=== PATIENT | male | born 1975 | race Caucasian/White ===

== ENCOUNTER 2018-03-22 07:38 | Observation (INO) | payer OTHER ==
[2018-03-22] MEDS ORDERED: SODIUM CHLORIDE 0.9% 1000ML 1,000 ML IVS PRN (07:58)
[2018-03-22] MEDS ORDERED: SODIUM CHLORIDE 0.9% (FLUSH) 10 ML SYG IV PRN ×2 (07:58→14:47)
[2018-03-22] MEDS ORDERED: ONDANSETRON INJ 4 MG/2 ML VIAL IV ONE ×2 (08:01→14:54)
[2018-03-22] MEDS ORDERED: HYDROmorphone HCL INJ 2 MG/ML VIAL IV ONE ×4 (08:01→14:19)
--- NOTE | 2018-03-22 08:02 | ED.PDOC ---
History of Present Illness - General Chief Complaint: Problem Stated Complaint: left flank and abdominal pain Time Seen by Provider: 03/22/18 07:53 Source: patient, family - History of Present Illness Initial Comments: 2-3 H AGO, SUDDEN ONSET L ABD/FLANK PAIN. SEVERE. H/O KIDNEY STONE 10 YR AGO . Severity: severe Improving Factors: nothing Worsening Factors: nothing Associated Symptoms: nausea/vomiting Allergies/Adverse Reactions: Allergies NO KNOWN ALLERGY Allergy (Verified 03/22/18 07:49) Home Medications: Ambulatory Orders NK [NK] 03/22/18 Review of Systems - Review of Systems Constitutional: Denies: chills, diaphoresis, fever, malaise EENTM: States: no symptoms reported Respiratory: States: no symptoms reported Cardiology: States: no symptoms reported Gastrointestinal/Abdominal: States: abdominal pain - L FLANK PAIN, nausea, vomiting. Denies: constipation, diarrhea Genitourinary: Denies: dysuria, frequency, hematuria, pain Musculoskeletal: States: no symptoms reported Skin: States: no symptoms reported Neurological: States: no symptoms reported Endocrine: States: no symptoms reported Hematologic/Lymphatic: States: no symptoms reported All other Systems: Reviewed and Negative Past Medical History (General) - Patient Medical History Hx Stroke: No Hx Congestive Heart Failure: No Hx Diabetes: No - Vaccination History Hx Influenza Vaccination: No - Social History Hx Tobacco Use: Yes Family Medical History - Family History Father Family History: Unknown Living Status: Unknown Physical Exam - Physical Exam General Appearance: Alert, Obvious distress, Ill Appearing Eye Exam: bilateral normal Ears, Nose, Throat: hearing grossly normal, normal ENT inspection Neck: non-tender, full range of motion Respiratory: lungs clear, normal breath sounds, no respiratory distress Cardiovascular/Chest: regular rate, rhythm, no murmur Peripheral Pulses: radial,right: 2+, radial,left: 2+ Gastrointestinal/Abdominal: normal bowel sounds, no organomegaly, no pulsatile mass, guarding, tenderness Rectal Exam: deferred Back Exam: normal inspection, CVA tenderness (L) Extremity: normal range of motion, normal inspection 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 EKG NSR. CBC WBC 13.2 CT - L STONE 2.6 MM, DISTAL NEAR UVJ. MILD HYDRONEPHROSIS. UA PENDING TO R/O IFXN. GIVING 2ND BOLUS AND PAIN CONTROL. 03/22/18 12:41 PT REQUIRING 3RD GRAM OF DILAUDID IN 4 HRS THUS HIS REQUIRING IV PAIN CONTROL AND IS THUS NOT ABLE TO BE DISCHARCHED ON PO PAIN CONTROL. THUS, ADMITTING. THANK YOU, [facility] AND [facility], FOR ACCEPTING FURTHER CARE OF OUR PT. UROLOGY WILL BE PRESENT IN THE HOSPITAL TOMORROW FOR CONSULTATION. Departure - Departure Clinical Impression: Left nephrolithiasis, Microscopic hematuria, Hydronephrosis due to obstruction of ureter, Neutrophilic leukocytosis Nausea & vomiting Qualifiers: Vomiting type: unspecified Vomiting Intractability: non-intractable Qualified Code(s): R11.2 - Nausea with vomiting, unspecified Disposition: Admit Patient Condition: Good Departure Forms: Patient Portal Self Enrollment Home Medications: Ambulatory Orders NK [NK] 03/22/18 Decision To Admit - Decistion To Admit Decision to Admit Reason: Admit from ER Decision to Admit Date: 03/22/18 Decision to Admit Time: 12:49
--- NOTE | 2018-03-22 08:52 | CT ---
EXAM DESCRIPTION: Abdoment/Pelvis w/o Contrast: Computed Tomography. CLINICAL HISTORY: L FLANK PAIN; POSSIBLE KIDNEY STONE COMPARISON: None. TECHNIQUE: Spiral-axial scans 5 x 5 mm intervals through the abdomen and pelvis without oral or IV contrast. Coronal and sagittal 2.0 mm reconstructions. Total Exam DLP: 687.13 mGy-cm. This exam was performed according to our departmental CT dose-optimization program which includes automated exposure control, adjustment of the mA and/or kV according to patient size and/or use of iterative reconstruction technique; to reduce radiation dose to as low as reasonably achievable (ALARA). FINDINGS: Lung bases and pleura: Negative. Liver, stomach, spleen, and adrenal glands: Stomach unremarkable. Other solid organs are negative. Pancreas, Gallbladder, and Ducts: Gallbladder visualized. Ducts and pancreas unremarkable. Kidneys and Ureters: Mild hydronephrosis in the left kidney. 3 mm stone in the upper collecting system appears to be nonobstructive. 2.6 mm radiodense stone in the distal left ureter approximately 3 to 4 mm from the left UVJ. Minimal dilation of the entire ureter with periureteral edema at the level of the stone and periureteral edema in the proximal ureter. Right kidney and ureter are negative. Mesentery: Minimal left pararenal fatty stranding. No free intraperitoneal air. No ascites. Aorta: Outer caliber negative. Small Bowel: Minimal gas but no obstruction. Terminal Ileum/Cecum: Cecum minimally distended by fecal matter. Short appendix normal caliber. Normal surrounding fat. Colon: Minimal distention of the transverse colon by gas but no air-fluid level. Abrupt transition distal transverse colon, just before the splenic flexure, on axial series 2 image 20. Narrowed lumen but no definite mass. No surrounding fatty inflammatory change.. Pelvic Organs: No radiodense stones in the urinary bladder. No fluid in the cul-de-sac. Prostate gland abutting the urinary bladder with minimal enlargement. Spine and Bony Pelvis: Minimal sacral dextroscoliosis. Minimal hypertrophic changes in the superior lateral acetabula facets. Abdominal Wall/Back Soft Tissues: Negative. IMPRESSION: 1. 2.6 mm radiodense stone in the distal left ureter with partial obstruction. 3 mm radiodense stone in the upper pole left kidney with mild hydronephrosis. Periureteral edema around the distal ureteral stone in the proximal left ureter. Minimal left pararenal fatty stranding. Right kidney and ureter is unremarkable. No radiodense stones in the bladder. 2. Distention of the transverse colon with gas and abrupt transition at the distal transverse colon adjacent to the splenic flexure. No definite mass or inflammatory changes in the surrounding fat. Correlate with clinical findings and consider colonoscopy. Electronically signed by: Griffin Sheppard MD 03/22/2018 8:50 AM CDT
[2018-03-22] MEDS ORDERED: SODIUM CHLORIDE 0.9% 1000ML 1,000 ML IVS ONE (09:38)
--- NOTE | 2018-03-22 12:45 | HP ---
SUPERVISING PHYSICIAN: Bayron Blackmon MD CHIEF COMPLAINT: Left-sided flank and abdominal pain. HISTORY OF PRESENT ILLNESS: This is a 42 year-old male patient who on the evening prior to admission started having some pain in his left upper quadrant. Initially he thought it was gas pains but it did not go away and it continued. It then radiated to his left flank. He tried taking NSAIDS. He also tried a heat and cold pack. He also tried warm and cold showers and baths and nothing alleviated the pain. It was continuous and it worsened to the point that he came to the Emergency Room. He also had some chills and fever as well as some nausea and vomiting. In the Emergency Room his vital signs showed he was afebrile. Heart rate was 64, blood pressure 132/79, respiratory rate 20 , 02 saturation 100% on room air. Laboratory was done and his WBCs were 13.2 with a stable hemoglobin and hematocrit of 15.1 and 45.8. He had a slight left shift on differential. His electrolytes were basically within normal limits. His BUN was 12, creatinine 1.26 and serum glucose was 128. Lipase 30. Urinalysis showed 8.5 urine pH, a moderate amount of urine blood and greater than [address] of the abdomen and pelvis was done and showed a 2.6 mm radiodense stone in the distal left ureter with partial obstruction, 3 mm radiodense stone into the upper pole , left kidney with mild hydronephrosis and periureteral edema around the distal ureteral stone in the proximal left ureter, minimal left pararenal fatty stranding, right kidney and ureter is unremarkable. No radiodense stones in the bladder. Distention of the transverse colon with gas and abrupt transition to the distal transverse colon adjacent to the splenic flexure. No definite mass or inflammatory changes in the surrounding fat and correlate with clinical findings and consider for colonoscopy. He was given several doses of Dilaudid. It was very difficult to control his pain. He also got several doses of Zofran and 2 liters of normal saline. Due to the inability to control his pain , I was called for hospital admission. PAST MEDICAL HISTORY: History of kidney stone approximately 16 years ago. He was briefly hospitalization and he passed it without problems. PAST SURGICAL HISTORY: 1. Three ear surgeries. 2. Tonsillectomy and adenoidectomy. 3. Multiple hand surgeries due to fractures. CURRENT MEDICATIONS: None. ALLERGIES: NO KNOWN DRUG ALLERGIES. SOCIAL HISTORY: He lives in [place]. He works at [employer]. He is . He has 2 boys. He smokes approximately one-half pack of cigarettes daily and has for 20+ years. He drinks alcohol 1 to 2 times a year and there is no history of any illegal drug use. REVIEW OF SYSTEMS: GENERAL: Positive for fatigue, negative for fever or weight changes. HEENT: Negative for ear pain, vision changes, sore throat or sinus symptoms. RESPIRATORY: Negative for coughing, wheezing, shortness of breath. CARDIAC: Negative for chest pain, palpitations, tachycardia. GI: Positive for nausea and vomiting and left upper quadrant abdominal pain, negative for constipation or diarrhea. GENITOURINARY: Positive for dysuria and mild hematuria as well as increased frequency. SKIN: Negative for lesions or rashes. NEURO: Negative for headaches, dizziness or seizures. PHYSICAL EXAMINATION: VITAL SIGNS: Temperature is 98, pulse rate 63, blood pressure 129/77, respiratory rate 18, 02 saturation 93% on room air. GENERAL: This is a 42 year-old male patient who is lying in his hospital bed. He looks to be in mild pain. HEENT: Normocephalic and atraumatic. Pupils are equal and reactive. Oropharynx is clear. NECK: Supple without mass. CHEST: Essentially clear to auscultation bilaterally. CARDIOVASCULAR: Regular rate and rhythm. ABDOMEN: Abdomen is soft, nondistended. It is mildly tender in the left upper quadrant. There is no rebound tenderness or guarding. He does have mild left CVA tenderness. EXTREMITIES: No cyanosis, clubbing, or edema. NEUROLOGIC: He is awake, alert, and oriented x3. LABS AND FILMS: As per history of present illness. ASSESSMENT: 1. 2.6 kidney stone in the left ureter and a 3 mm kidney stone in the upper pole of the left kidney. 2. Left upper quadrant abdominal pain. 3. Intractable pain due to kidney stones. 4. Mild leukocytosis most likely secondary to kidney stones. PLAN: We will place the patient in observation. I have given him pain medications as needed and will give him 4 scheduled doses of Toradol IV. Will hydrate him gently with fluids overnight, started a PPI for ulcer prophylaxis, Lovenox for DVT prophylaxis. I have also done a urine culture. Will hold starting any antibiotics at this time. We have called Dr. Boogie, urologist, for an appointment tomorrow and he will see him at the hospital. We will strain his urine. I will get an abdominal x-ray tomorrow. Will continue to monitor him closely and follow as needed. Dr. Blackmon is the collaborating physician available for consultation. #[id number] [facility]TD[facility]
[2018-03-22] MEDS ORDERED: ONDANSETRON INJ 4 MG/2 ML VIAL IV PRN (14:47)
[2018-03-22] MEDS ORDERED: ONDANSETRON INJ 4 MG/2 ML VIAL ONE (14:51)
[2018-03-22] MEDS ORDERED: IV SET AND CAP CHANGE INJ INJ SCH (15:00)
[2018-03-22] MEDS ORDERED: PANTOPRAZOLE SODIUM IV 40 MG VIAL IV SCH (15:00)
[2018-03-22] MEDS: SODIUM CHLORIDE 0.45% 1000ML 1,000 ML IVS PRN ×2 (15:46→22:49)
[2018-03-22] MEDS: KETOROLAC TROMETHAMINE INJ 30 MG/ML VIAL IV SCH ×2 (15:47→20:55)
[2018-03-22] MEDS: HYDROmorphone HCL INJ 2 MG/ML VIAL IV PRN ×2 (18:53→22:49)
[2018-03-22] MEDS: ENOXAPARIN SODIUM 40 MG/0.4 ML SYG SUBCU SCH (20:55)
[2018-03-22] MEDS: SODIUM CHLORIDE 0.9% (FLUSH) 10 ML SYG IV SCH (20:56)
[2018-03-23] MEDS: KETOROLAC TROMETHAMINE INJ 30 MG/ML VIAL IV SCH ×2 (02:43→08:08)
[2018-03-23] MEDS: HYDROmorphone HCL INJ 2 MG/ML VIAL IV PRN ×3 (05:53→16:58)
[2018-03-23] MEDS: SODIUM CHLORIDE 0.45% 1000ML 1,000 ML IVS PRN ×3 (06:33→21:14)
--- NOTE | 2018-03-23 07:19 | RAD ---
CLINICAL HISTORY:kidney stones. :1975. Sex:Male. TECHNIQUE: Supine and upright views of the abdomen. There is gaseous distention of the colon. No dilated loops of small bowel are identified.. There is no mass. There is no free air. The stones seen within the left kidney and just proximal to the left UVJ are better appreciated on the CT scan done on 03/22/2018. Skeletal structures are unremarkable. The visible lung bases are clear IMPRESSION: The stones seen within the left kidney and distal left ureter are better appreciated on the prior CT scan. Electronically signed by: Gary Odonnell MD 03/23/2018 7:17 AM CDT Workstation: [id number]
[2018-03-23] MEDS: SODIUM CHLORIDE 0.9% (FLUSH) 10 ML SYG IV SCH (08:09)
--- NOTE | 2018-03-23 16:03 | CONS ---
DATE OF CONSULTATION: 03/23/18 REASON FOR CONSULTATION: Left renal colic. HISTORY OF PRESENT ILLNESS: Mr. Chu is a 42 year-old white male who has had a previous urinary stone about 20 years ago that he passed. He now presents with approximately a 2 to 3 day history of left renal colic. He has had a little nausea as well. CT scan was obtained demonstrating a 2.6 mm left distal ureteral calculus with some mild hydronephrosis. He does have a small 3 mm stone in the left renal collecting system as well. At the present time, the patient's pain seems to be controlled although it seems to be still spasmodic at times and he is requiring Toradol and some IV Dilaudid. He has had no fever. I did review his CT scan and laboratory studies. PHYSICAL EXAMINATION: GENERAL: His examination suggests a 39ish year-old male who is presently resting quietly. He is alert and talkative. HEENT: Grossly unremarkable. Full testing was not performed. ABDOMEN: Benign without organomegaly or masses. No CVA tenderness. IMPRESSION: 1. Left renal colic and about a 3 mm left distal ureteral stone with mild hydronephrosis. 2. Left renal calculus which is small and nonobstructing. RECOMMENDATIONS: For now, I will try and maximize his pain control. I have suggested IM Toradol 30 mg every 6 hours p.r.n. pain and then can supplement that with Dilaudid as needed for additional pain control. If his pain is controlled, then I think he can be switched to p.o. Toradol 10 mg q.i.d. plus breakthrough oral analgesic in the form of either Lortab or something similar. I would like to see the patient in my office early next week for a followup. I would get him a strainer in case that he passes a stone we will have it for analysis. I did discuss all of the options available to him today and he wants to pursue a conservative option at this point in time if possible. #[id number] [facility]
[2018-03-23] MEDS ORDERED: PANTOPRAZOLE SODIUM IV 40 MG VIAL ONE (19:37)
[2018-03-23] MEDS: ENOXAPARIN SODIUM 40 MG/0.4 ML SYG SUBCU SCH (20:29)
[2018-03-23] MEDS: KETOROLAC TROMETHAMINE INJ 30 MG/ML VIAL IM PRN (21:22)
[2018-03-24] MEDS: SODIUM CHLORIDE 0.45% 1000ML 1,000 ML IVS PRN (05:05)
[2018-03-24] MEDS: KETOROLAC TROMETHAMINE INJ 30 MG/ML VIAL IM PRN ×2 (06:13→12:13)
[2018-03-24] MEDS ORDERED: PANTOPRAZOLE SODIUM IV 40 MG VIAL IV SCH (06:30)
--- NOTE | 2018-03-24 07:45 | PN ---
SUPERVISING PHYSICIAN: Bayron Blackmon MD DATE: 03-23-18 SUBJECTIVE: The patient continues to have a fair amount of pain, this is being controlled with Dilaudid and IV Toradol. Dr. Boogie had seen and plan is to transition him to IM Toradol or p.o. Toradol and hopefully be discharged tomorrow. I have encouraged the patient to ambulate as well as continue the oral hydration. OBJECTIVE: VITAL SIGNS: Afebrile. Temperature 98.6, pulse 75, blood pressure 102/66, respirations 15, saturation 92% on room air. GENERAL: The patient does appear to have a little discomfort but is in no acute distress. CHEST: Clear to auscultation. HEART: Regular rate and rhythm. ABDOMEN: Soft, non-tender, positive bowel sounds. No CVA tenderness. EXTREMITIES: No cyanosis, clubbing, or edema. NEUROLOGICAL: He is alert and oriented x3. LABORATORY: CBC shows white count improving, is down to 11,300, hemoglobin 12.6 , hematocrit 37.9, platelet count 183,000, differential today shows resolving left shift. Chemistries show normal electrolytes with potassium 3.8, BUN 13, creatinine 1.52, total bilirubin 11.3. All other liver functions within normal limits. MICROBIOLOGY: Urine culture pending. Note consultation, Dr. Boogie, Urology, please see his report for full recommendations. ASSESSMENT: 1. Left renal colic with approximately 3 mm distal urethral stone with mild hydronephrosis requiring aggressive pain management.. 2. Left renal calculus with small amount of obstructing.. 3. Intractable pain due to kidney stones. 4. Mild leukocytosis most likely secondary to kidney stones. PLAN: Continue as per Dr. Boogie's recommendations with Toradol but switching to IM every 6 hours, 30 mg, and utilize Dilaudid for breakthrough pain. As soon as he is able to tolerate p.o. medication, hopefully can be discharged with continued management with p.o. Toradol and opioid, either [place] or Tylenol No. 3. Will need to followup with Dr. Boogie in his office this coming week. Will continue with IV fluids. I have again encouraged him to ambulate as much as possible and continue to strain his urine. Will continue to monitor closely until able to discharge on oral medication. Until the, we will continue to monitor and treat appropriately. #[id number] [facility]
[2018-03-24 10:05] VITALS: BP 118/76; TEMP 98.4; O2SAT 95
--- NOTE | 2018-04-01 08:11 | DS ---
SUPERVISING PHYSICIAN: Bayron Blackmon MD ADMITTING PHYSICIAN: Bayron Blackmon MD ATTENDING PHYSICIAN: Carmelita Clayton CONSULTATION: Damian Boogie MD ADMISSION DIAGNOSIS: 1. 2.6 mm kidney stone in left ureter and 3 mm kidney stone in the right upper pole of the left kidney. 2. left upper quadrant abdominal pain likely secondary to #1. 3. Intractable pain due to kidney stones. 4. Mild leukocytosis secondary to #1 and ongoing pain with some demarginalization. DISCHARGE DIAGNOSIS: 1. Left renal colic and about a 3 mm left distal urethral stone with mild hydronephrosis. 2. Left renal calculus with small amount of obstructing stone. REASON FOR HOSPITALIZATION: Mr. Chu is a 43 year-old male patient that on the evening prior to admission on 03/21 started having some pain in his left upper quadrant. He initially he thought it was gas but it continued and started radiating to his left flank. He tried taking some pain relievers in the form of NSAIDS as well as utilizing heat and cold packs and warm showers and bath and this did nothing to alleviated the pain. The pain continued to worsened to the point that he came to the Emergency Room on with some chills and fever as well as some nausea and vomiting. His vital signs showed he was afebrile with a heart rate of 64, blood pressure initially 132/79, respiratory rate 20, saturation 100% on room air. Laboratory showed he had a mild leukocytosis of 13,200 with a left shift. Electrolytes were within normal limits. BUN was 12, creatinine 1.26. Lipase 30. Urinalysis showed moderate urine blood with greater than 50 [address]s. He had a [address] of the abdomen and pelvis which showed a 2.6 mm radiodense stone in the distal left ureter with partial obstruction as well as a 3 mm radiodense stone in the upper pole of the eft kidney with mild hydronephrosis and periureteral edema around the distal ureteral stone in the proximal left ureter. There was noted distention of the transverse colon with gas and abrupt transition to the distal transverse colon adjacent to the splenic flexure but no definite mass or inflammatory changes in the surrounding fat. At that time he was given Dilaudid in the Emergency Room and was having a very difficult time getting control of his pain even with Dilaudid. He was given fluids, Zofran and due to the inability to control his pain, he was placed in observation overnight for further management. HOSPITAL COURSE: Mr. Chu was placed in observation on the medical/ surgical floor for intractable pain sedimentation to a left kidney stone. He required Dilaudid initially for pain control and fluids. On the morning of discharge, he had improvement in his pain to the point he was able to take p.o. medication. He was not having any nausea or vomiting. He was seen in consultation prior to discharge and recommendations were patient was stable by Dr. Boogie and could be followed up in outpatient setting with pain control at home. PLAN: Mr. Chu was discharged on 03/23/18. Discharge condition was stable and improved. Disposition: Discharge to home with family. Discharge Medications: 1. Tylenol No. 3, one every 4 hours as needed, #30, no refills. 2. Toradol tablets 10 mg every 6 hours as needed, #30, no refills. INSTRUCTIONS: He is to followup with Dr. Boogie in his office in 2 weeks as [address] as Dr. Blackmon as needed. Diet as tolerated, needs to push fluid. Activities: Increase as tolerated. Instructions to strain urine and collect stone if able to and take with him to his appointment with Dr. Boogie. He is told to return to the hospital should any worsening of symptoms or any concerning symptoms, call Dr. Boogie's office or Dr. Blackmon office. #[id number] PLAN: [facility]
== END 2018-03-24 12:45 | disposition home or self-care (01) ==
LOC: ER 07:38 → MS 12:45
PROVIDERS: ADMIT Family Medicine; ATTEND Nurse Practitioner Family
DX: N13.2 Hydronephrosis with renal and ureteral calculous obstruction (principal); D72.829 Elevated white blood cell count, unspecified; R11.2 Nausea with vomiting, unspecified; F17.210 Nicotine dependence, cigarettes, uncomplicated; Z87.442 Personal history of urinary calculi
CPT/HCPCS: 96372 ×2; 96375 ×2; 96376 ×4; J1170 ×10; J1885 ×7; J2405 ×2; J7799 ×6; J7030 ×2; J1650 ×2; 80053 ×3; 87086; 36415 ×5; 81001; 85025 ×3; 83690; 74019; 74176; 94760 ×5; 99406; 99285; 93005; G0378; 96374

== ENCOUNTER 2019-12-31 05:59 | Emergency (ER) | payer OTHER ==
[2019-12-31] MEDS ORDERED: MORPHINE SULFATE INJ 10 MG/ML VIAL IV ONE (06:28)
[2019-12-31] MEDS ORDERED: SODIUM CHLORIDE 0.9% 1000ML 1,000 ML IVS ONE ×2 (06:28→07:57)
[2019-12-31] MEDS ORDERED: ONDANSETRON INJ 4 MG/2 ML VIAL IV ONE (06:28)
--- NOTE | 2019-12-31 06:39 | ED.PDOC ---
History of Present Illness - General Information Source: patient, RN notes reviewed, Vital Signs reviewed Exam Limitations: no limitations - History of Present Illness Initial Comments: Patient is a 44-year-old male with past medical history of kidney stones who presents the ED for diffuse sharp abdominal pain. States the pain began at 8 PM last night and has been constant. Pain does not localize to one side or the other and he denies any flank pain. Has had nausea vomiting and diarrhea, but denies fever, chills or dysuria. He denies any previous abdominal surgeries. States this does not feel similar to previous kidney stones. <Eloy Desai - Last Filed: 12/31/19 06:51> <Alvin Davis - Last Filed: 12/31/19 08:52> - General Chief Complaint: Abdominal Pain Stated Complaint: abd pain, N/V/D Time Seen by Provider: 12/31/19 06:22 Review of Systems - Review of Systems Constitutional: Denies: chills, fever EENTM: Denies: nose congestion, throat pain Respiratory: Denies: cough, short of breath, wheezing Cardiology: Denies: chest pain, palpitations, syncope Gastrointestinal/Abdominal: States: abdominal pain, diarrhea, nausea, vomiting Genitourinary: Denies: dysuria, frequency, hematuria Musculoskeletal: Denies: back pain, neck pain Neurological: Denies: headache, paresthesia Hematologic/Lymphatic: States: no symptoms reported All other Systems: Reviewed and Negative <Eloy Desai - Last Filed: 12/31/19 06:51> Past Medical History (General) - Patient Medical History Hx Seizures: No Hx Stroke: No Hx Dementia: No Hx Asthma: No Hx of COPD: No Hx Cardiac Disorders: No Hx Congestive Heart Failure: No Hx Pacemaker: No Hx Hypertension: No Hx Thyroid Disease: No Hx Diabetes: No Hx Gastroesophageal Reflux: No Hx Renal Disease: No Hx of HIV: No Hx MRSA: No Surgical History: tonsillectomy - Vaccination History Hx Tetanus, Diphtheria Vaccination: No Hx Influenza Vaccination: No - Social History Hx Tobacco Use: Yes Hx Alcohol Use: Yes Hx Substance Use: No Hx Physical Abuse: No Hx Emotional Abuse: No <Eloy Desai - Last Filed: 12/31/19 06:51> Family Medical History - Family History Father Family History: Unknown Living Status: Unknown <Eloy Desai - Last Filed: 12/31/19 06:51> Physical Exam - Physical Exam General Appearance: Alert, Comfortable, No apparent distress Neck: non-tender, full range of motion, supple Respiratory: chest non-tender, lungs clear, normal breath sounds, no respiratory distress, no accessory muscle use Cardiovascular/Chest: regular rate, rhythm, no edema Gastrointestinal/Abdominal: other - Soft. Tender to palpation in all quadrants. No guarding or rigidity. No CVA tenderness Back Exam: no CVA tenderness, no vertebral tenderness Extremity: normal range of motion, non-tender, normal inspection Neurologic: no motor/sensory deficits, alert, normal mood/affect Skin Exam: normal color, warm/dry <Eloy Desai - Last Filed: 12/31/19 06:51> Progress - Progress Progress: 12/31/19 06:41 Differential diagnosis includes but is not limited to acute appendicitis, small bowel obstruction, viral gastroenteritis, colitis, diverticulitis, acute cholecystitis, choledocholithiasis, pancreatitis, gastritis, GERD 12/31/19 06:58 After detailed discussion, care transferred to Dr. Davis prior to completed results for disposition. - Results/Orders Results/Orders: EKG-- Sinus bradycardia, rate 59, nml intervals, no ST abnormality CT ABDOMEN/PELVIS <Eloy Desai - Last Filed: 12/31/19 06:51> - Progress Progress: 12/31/19 08:48 The patient is a 44-year-old male presented emergency room with abdominal cramping and nausea vomiting diarrhea since yesterday. Source is most likely a bacterial gastroenteritis. We have seen quite a few cases of this in the community recently. He needs to keep himself well-hydrated and maintain primarily a liquid diet for the next 2 days. He will be written for Phenergan and Zofran for as needed use to control nausea and vomiting. He will also be written for Carafate for the next couple of weeks to reduce stomach acid. He will be written for Augmentin as a broad-spectrum antibiotic for coverage for possible bacterial source. He needs to follow back up with his primary care doctor in a couple of days. ER warnings are given. - Results/Orders Results/Orders: Laboratory Tests 12/31/19 12/31/19 12/31/19 06:35 06:35 07:35 WBC 15.9 H RBC 5.16 Hgb 16.8 Hct 49.0 MCV 95.0 H MCH 32.5 H MCHC 34.2 RDW 12.7 Plt Count 285 MPV 7.5 Absolute Neuts (auto) 14.50 H Absolute Lymphs (auto) 1.00 Absolute Monos (auto) 0.40 Absolute Eos (auto) 0.00 Absolute Basos (auto) 0.00 Neutrophils % 90.9 H Lymphocytes % 6.3 L Monocytes % 2.3 Eosinophils % 0.3 L Basophils % 0.2 Sodium 140 Potassium 4.4 Chloride 105 Carbon Dioxide 24 Anion Gap 15.4 BUN 14 Creatinine 1.07 BUN/Creatinine Ratio 13.1 Random Glucose 158 H Serum Osmolality 283.2 Calcium 9.7 Total Bilirubin 0.9 AST 27 ALT 50 Alkaline Phosphatase 110 Serum Total Protein 8.5 H Albumin 5.1 Globulin 3.4 Albumin/Globulin Ratio 1.5 Lipase 48 Urine Color Yellow Urine Appearance Clear Urine pH >= 9.0 H* Ur Specific [place] 1.015 Urine Protein Trace Urine Glucose (UA) Negative Urine Ketones 15 H Urine Blood Negative Urine Nitrite Negative Urine Bilirubin Negative Urine Urobilinogen 0.2 Ur Leukocyte Esterase Negative Urine RBC 0 Urine WBC 0 Ur Epithelial Cells 1-[address] scan of the abdomen pelvis shows a stable adrenal nodule. No evidence of any acute pathology. No obvious appendicitis or gallbladder disease. No obvious pancreatitis. No obvious renal pathology. No obstruction or perforation. See report for details. <Alvin Davis - Last Filed: 12/31/19 08:52> Departure <Eloy Desai - Last Filed: 12/31/19 06:51> - Departure Diet: bland diet Activity: increase activity as tolerated <Alvin Davis - Last Filed: 12/31/19 08:52> - Departure Clinical Impression: Gastroenteritis, Dehydration Disposition: Discharge to Home or Self Care Condition: Fair Departure Forms: ED Discharge - Pt. Copy, Patient Portal Self Enrollment Referrals: Carmelita Clayton NP [Active Staff] - 1-5 Days Prescriptions: Ondansetron Odt [Zofran ODT] 4 mg PO Q8HR PRN #5 tab PRN Reason: Nausea--Moderate Amoxicillin & Pot Clavulanate [Augmentin Tab] 875 mg PO BID #14 tab Promethazine HCl 25 mg PO Q6H PRN #10 tab PRN Reason: Vomiting Sucralfate Tab [Carafate Tab] 1 gm PO QID #60 tab Home Medications: Ambulatory Orders Acetaminophen W/ Codeine [Tylenol W/ CODEINE #3] 1 ea PO Q4H PRN #30 03/24/18 Ketorolac Tromethamine [Toradol Tabs] 10 mg PO Q6H PRN #30 tab 03/24/18 Amoxicillin & Pot Clavulanate [Augmentin Tab] 875 mg PO BID #14 tab 12/31/19 Ondansetron Odt [Zofran ODT] 4 mg PO Q8HR PRN #5 tab 12/31/19 Promethazine HCl 25 mg PO Q6H PRN #10 tab 12/31/19 Sucralfate Tab [Carafate Tab] 1 gm PO QID #60 tab 12/31/19 Additional Instructions: The patient is a 44-year-old male presented emergency room with abdominal cramping and nausea vomiting diarrhea since yesterday. Source is most likely a bacterial gastroenteritis. We have seen quite a few cases of this in the community recently. He needs to keep himself well-hydrated and maintain primarily a liquid diet for the next 2 days. He will be written for Phenergan and Zofran for as needed use to control nausea and vomiting. He will also be written for Carafate for the next couple of weeks to reduce stomach acid. He will be written for Augmentin as a broad-spectrum antibiotic for coverage for possible bacterial source. He needs to follow back up with his primary care doctor in a couple of days. ER warnings are given.
--- NOTE | 2019-12-31 07:32 | CT ---
EXAM: CT Abdomen and Pelvis With Intravenous Contrast CLINICAL HISTORY: The patient is 44 years old and is Male; Diffuse abd pain TECHNIQUE: Axial computed tomography images of the abdomen and pelvis with intravenous contrast. Sagittal and coronal reformatted images were created and reviewed. This CT exam was performed using one or more of the following dose reduction techniques: automated exposure control, adjustment of the mA and/or kV according to patient size, and/or use of iterative reconstruction technique. COMPARISON: CT abdomen pelvis from 03/22/2018 FINDINGS: LUNG BASES: Minimal dependent atelectasis in the lung bases. ABDOMEN: LIVER: Unremarkable. No obvious mass. GALLBLADDER AND BILE DUCTS: Unremarkable. No calcified stones. No significant biliary ductal dilatation. PANCREAS: Unremarkable. No ductal dilation. No obvious mass. SPLEEN: Unremarkable. No splenomegaly. ADRENALS: There is a right adrenal nodule measuring 1.5 cm. This is not significantly changed. On the prior exam, this had density compatible with an adrenal adenoma. Therefore, no follow-up imaging is indicated. The left adrenal gland is unremarkable. KIDNEYS AND URETERS: Unremarkable. No solid mass. No hydronephrosis. STOMACH AND BOWEL: No evidence of bowel obstruction. No significant bowel wall thickening appreciated. PELVIS: APPENDIX: The appendix is unremarkable. BLADDER: Unremarkable. No obvious mass. REPRODUCTIVE: Unremarkable as visualized. ABDOMEN and PELVIS: INTRAPERITONEAL SPACE: Unremarkable. No free air. No significant fluid collection. BONES/JOINTS: No acute fracture. No dislocation. SOFT TISSUES: Small fat-containing left inguinal hernia. VASCULATURE: Unremarkable. No abdominal aortic aneurysm. LYMPH NODES: No significant lymph node enlargement. IMPRESSION: No acute findings in the abdomen or pelvis. Electronically signed by: Daily Menendez MD 12/31/2019 7:30 AM CDT
[2019-12-31] MEDS ORDERED: cefTRIAXone SODIUM 1 GM in SODIUM CHL 0.9% 50ML MIN-BAG+ 50 ML IVPB ONE (07:57)
[2019-12-31] MEDS ORDERED: PROMETHAZINE HCL INJ 25 MG in SODIUM CHLORIDE 0.9% 50ML 50 ML IVPB ONE (08:05)
[2019-12-31 09:03] VITALS: BP 115/79; TEMP 98.1; O2SAT 97
== END 2019-12-31 09:00 | disposition home or self-care (01) ==
LOC: ER 05:59
DX: K52.9 Noninfective gastroenteritis and colitis, unspecified (principal); E86.0 Dehydration; R11.2 Nausea with vomiting, unspecified; R00.1 Bradycardia, unspecified; F17.200 Nicotine dependence, unspecified, uncomplicated; Z87.442 Personal history of urinary calculi
CPT/HCPCS: 36415; 74177; 80053; 81001; 83690; 85025; 93005; A4216; J0696; J2270; J2405; J2550; J7030; J7050